=== PATIENT | female | born 1995 | race Caucasian/White ===

== ENCOUNTER 2025-01-19 11:47 | Inpatient (IN) | payer MEDICARE, MEDICAID ==
[~2025-01-19] VITALS: Ht 162.6 cm; Wt 65.8 kg
[2025-01-19 12:28] LABS: COVID AG,FIA SOURCE NASAL SWAB
[2025-01-19 12:30] LABS: BASOPHILS % (AUTO) 0.9 % (0.0-2.0); HEMATOCRIT 42.6 % (36-46); HEMOGLOBIN 14.1 g/dL (12.0-16.0); LYMPHOCYTES # (AUTO) 1.9 K/uL (1.0-4.8); LYMPHOCYTES % (AUTO) 27.3 % (22.0-44.0); MEAN CORPUSCULAR HEMOGLOBIN 28.9 pg (26.0-34.0); MEAN CORPUSCULAR HGB CONC 33.1 G/dL (31.0-37.0); MEAN CORPUSCULAR VOLUME 87 fL (80-100); MONOCYTES # (AUTO) 0.3 K/uL (0.1-1.0); MONOCYTES % (AUTO) 4.7 % (2.0-9.0); NEUTROPHILS # (AUTO) 4.6 K/uL (1.8-7.7); NEUTROPHILS % (AUTO) 66.1 % (40.0-70.0); PLATELET COUNT (AUTO) 381 K/uL (150-450); RED BLOOD CELL COUNT(AUTO) 4.88 MIL/uL (4.00-5.20); RED CELL DISTRIBUTION WIDTH 15.7 % (11.5-14.5); WHITE BLOOD COUNT (AUTO) 6.9 K/uL (4.5-11.0)
[2025-01-19 12:40] LABS: ANION GAP 9 mmol/L (8-16); CALCIUM, TOTAL 9.3 mg/dL (8.8-10.5); CARBON DIOXIDE 28 mmol/L (22-29); CHLORIDE 103 mmol/L (98-107); GLOMERULAR FILTR. RATE CALC > 60 mL/min (>60); POTASSIUM 3.8 mmol/L (3.5-5.1); SODIUM SERUM 140 mmol/L (136-145); UREA NITROGEN, BLOOD 6 mg/dL (7-18)
[2025-01-19 12:43] LABS: GLUCOSE,RANDOM 88 mg/dL (70-110)
[2025-01-19 12:45] LABS: ALBUMIN 3.6 g/dL (3.4-5.0); BILIRUBIN,DIRECT 0.1 mg/dL (0.00-0.20); BILIRUBIN,TOTAL 0.2 mg/dL (0.1-1.0); TOTAL PROTEIN, SERUM 7.9 g/dL (6.4-8.2)
[2025-01-19 12:46] LABS: SARS-COV2 (COVID) ANTIGEN,FIA Negative (Negative)
[2025-01-19 12:51] LABS: TROPONIN I-HIGH SENSITIVITY 5 ng/L (<51)
[2025-01-19 12:56] LABS: ACETAMINOPHEN < 2 mcg/mL (10-30); CREATINE KINASE, TOTAL ONLY 51 U/L (26-192)
[2025-01-19 13:00] LABS: B-TYPE NATRIURETIC PEPTIDE 11 pg/mL (0-100)
[2025-01-19 13:20] LABS: ALCOHOL, BLOOD (SERUM) < 3 mg/dL (0-10)
[2025-01-19] MEDS ORDERED: HALOPERIDOL 5 MG TABLET PO PRN (13:30)
[2025-01-19 14:06] LABS: PH,URINE DRUG SCREEN 6.5 (5.0-8.0)
[2025-01-19 14:24] LABS: ALCOHOL, URINE DRUG SCREEN NEGATIVE (NEGATIVE); AMPHET/METH SCREEN,URINE NEGATIVE (NEGATIVE); BARBITURATE SCREEN, URINE NEGATIVE (NEGATIVE); BENZODIAZEPINES SCREEN,URINE NEGATIVE (NEGATIVE); CANNABINOID SCREEN,URINE NEGATIVE (NEGATIVE); COCAINE SCREEN,URINE NEGATIVE (NEGATIVE); METHADONE SCREEN, URINE NEGATIVE (NEGATIVE); OPIATE SCREEN,URINE NEGATIVE (NEGATIVE); PHENCYCLIDINE SCREEN,URINE NEGATIVE (NEGATIVE)
[2025-01-20] MEDS: ACETAMINOPHEN 325 MG TABLET PO ONE (08:41)
[2025-01-20 13:39] VITALS: O2SAT 98
[2025-01-20] MEDS ORDERED: INFLUENZA VIRUS VACCINE TVS (6MO+) 2024-25/PF 45 MCG/0.5 ML SYRINGE IM. ONE (16:15)
[2025-01-20 16:38] VITALS: BP 94/59; PULSE 79; RESP 14; TEMP 97.6
[2025-01-20 20:14] VITALS: BP 94/59; PULSE 70; RESP 15; TEMP 97.6; O2SAT 97
[2025-01-20] MEDS: ZOLPIDEM TARTRATE 10 MG TABLET PO PRN (21:24)
[2025-01-21] MEDS ORDERED: MAGNESIUM HYDROXIDE SUSPENSION 30 ML UDCUP PO PRN (07:45)
[2025-01-21] MEDS ORDERED: ONDANSETRON 4 MG TABLET PO PRN (07:45)
[2025-01-21] MEDS ORDERED: IBUPROFEN 400 MG TABLET PO PRN (07:45)
[2025-01-21] MEDS ORDERED: ACETAMINOPHEN 325 MG TABLET PO PRN (07:45)
[2025-01-21] MEDS ORDERED: MAG HYDROX/ALUMINUM HYD/SIMETH ES 30 ML SUSPENSION UDCUP PO PRN (07:45)
[2025-01-21] MEDS ORDERED: LOPERAMIDE HCL 2 MG CAPSULE PO PRN (07:45)
[2025-01-21] MEDS ORDERED: DOCUSATE SODIUM 100 MG CAPSULE PO PRN (07:45)
[2025-01-21] MEDS ORDERED: CloNIDine HCL 0.1 MG TABLET PO PRN (07:45)
[2025-01-21] MEDS ORDERED: ALBUTEROL SULFATE HFA 90 MCG/PUFF 8 GM INHALER IH PRN (07:45)
[2025-01-21] MEDS ORDERED: NICOTINE 14 MG/24 HOUR PATCH TD PRN (07:45)
[2025-01-21] MEDS ORDERED: GuaiFENesin/D-METHORPHAN [SUGAR-FREE] 200-20MG/10 ML SYRUP UDCUP PO PRN (07:45)
[2025-01-21] MEDS ORDERED: PETROLATUM,WHITE 28 GM JELLY TP PRN (07:45)
[2025-01-21 08:28] VITALS: RESP 16
[2025-01-21] MEDS: LURASIDONE HCL 40 MG TABLET PO ONE (11:46)
[2025-01-21] MEDS: FLUoxetine HCL 20 MG CAPSULE PO SCH (11:46)
[2025-01-21 20:46] VITALS: BP 114/78; PULSE 81; RESP 18; TEMP 98.2; O2SAT 97
[2025-01-22] MEDS: LURASIDONE HCL 40 MG TABLET PO SCH (06:18)
[2025-01-22 08:30] LABS: HEMOGLOBIN A1C 5.7 % (3.8-5.6)
[2025-01-22 08:43] LABS: CHOL/HDL RATIO 3.7 (3.9-5.7); THYROID STIMULATING HORMONE 1.65 uIU/mL (0.36-3.74)
[2025-01-22 21:02] VITALS: BP 107/61; PULSE 66; RESP 18; TEMP 98.3; O2SAT 98
[2025-01-23 08:40] VITALS: BP 128/60; PULSE 70; RESP 19; TEMP 97.7; O2SAT 96
[2025-01-23 21:39] VITALS: BP 112/80; PULSE 81; RESP 18; TEMP 98.3; O2SAT 98
[2025-01-24] MEDS: LORazepam 2 MG TABLET PO PRN (05:14)
[2025-01-24 08:39] VITALS: BP 102/61; PULSE 74; RESP 17; TEMP 98; O2SAT 95
[2025-01-24] MEDS ORDERED: LURA40TA2 PO (17:19)
[2025-01-24] MEDS ORDERED: FLUO-418 PO (17:20)
== END 2025-01-24 18:25 | disposition left against medical advice (07) | DRG 918 ==
LOC: EMS 11:57 → B3A 01-20 14:12 → B2X 01-21 08:49
PROVIDERS: ADMIT Psychiatry & Neurology Psychiatry; ATTEND Psychiatry & Neurology Psychiatry
PROC: GZHZZZZ Group Psychotherapy (ICD-10-PCS; principal; 2025-01-21)
PROC: GZ51ZZZ Individual Psychotherapy, Behavioral (ICD-10-PCS; 2025-01-21)
DX: T43.222A Poisoning by selective serotonin reuptake inhibitors, intentional self-harm, initial encounter (principal); Z59.00 Homelessness unspecified; E44.0 Moderate protein-calorie malnutrition; R45.851 Suicidal ideations; F25.1 Schizoaffective disorder, depressive type; Z20.822 Contact with and (suspected) exposure to COVID-19; F41.9 Anxiety disorder, unspecified; G47.00 Insomnia, unspecified; Z53.29 Procedure and treatment not carried out because of patient's decision for other reasons; F60.3 Borderline personality disorder; Z68.24 Body mass index [BMI] 24.0-24.9, adult; Z79.899 Other long term (current) drug therapy; Y92.89 Other specified places as the place of occurrence of the external cause
CPT/HCPCS: 80048; 80061; 80076; 80307; 82550; 83036; 83735; 83880; 84443; 84484; 84703; 85025; 90686; 93005; 99285; G0480; G0481